=== PATIENT | male | born 1960 | race African-American/Black ===

== ENCOUNTER 2022-09-15 08:36 | Inpatient (IN) | payer OTHER ==
[~2022-09-15] VITALS: Ht 180.3 cm; Wt 98.9 kg
[2022-09-15] MEDS ORDERED: SODIUM CHLORIDE 0.9% 1,000 ML IV ONE (09:30)
[2022-09-15] MEDS ORDERED: MORPHINE SULFATE 2 MG/ML CPJ (NOT FOR IM USE) IV ONE (09:30)
[2022-09-15 09:59] LABS: CHLORIDE 100 mEq/L (98-107)
[2022-09-15 10:03] LABS: INR 1.2; PARTIAL THROMBOPLASTIN TIME 31.3 sec (23.4-31.0); PROTHROMBIN TIME 12.6 sec (9.6-11.0)
[2022-09-15 10:13] LABS: HEMATOCRIT. 34.3 % (42.0-52.0); HEMOGLOBIN. 11.4 g/dL (14.0-18.0); MEAN CORPUSCULAR HEMOGLOBIN 29.4 pg (28.0-32.0); MEAN CORPUSCULAR VOLUME 88.1 fL (80.0-94.0); MEAN PLATELET VOLUME 8.3 fl (7.4-10.4); PLATELET 323 x1000/uL (130-400)
[2022-09-15] MEDS ORDERED: ASPIRIN 81MG TABLET PO ONE (10:45)
[2022-09-15] MEDS ORDERED: PIPERACILLIN/TAZ 3.375G PREMIX 50 ML IV ONE (10:45)
[2022-09-15] MEDS ORDERED: SODIUM CHLORIDE 0.9% 1000ML BAG (SEPSIS BOLUS) IV ONE (10:45)
[2022-09-15] MEDS ORDERED: OSELTAMIVIR 75MG CAPSULE PO ONE (10:45)
[2022-09-15] MEDS ORDERED: VANCOMYCIN 1G PREMIX 200 ML IV ONE (10:45)
[2022-09-15 10:57] LABS: PLATELET ESTIMATE NORMAL
[2022-09-15] MEDS ORDERED: PIPERACILLIN/TAZ 3.375G PREMIX 50 ML IV NR (13:00)
[2022-09-15] MEDS ORDERED: ASPIRIN 81MG TABLET PO NR (13:00)
[2022-09-15] MEDS ORDERED: OSELTAMIVIR 75MG CAPSULE PO NR (13:00)
[2022-09-15] MEDS ORDERED: MORPHINE SULFATE 2 MG/ML CPJ (NOT FOR IM USE) IV NR (13:00)
[2022-09-15] MEDS ORDERED: IPRATROPIUM/ALBUTEROL 0.5-3(2.5)MG/3ML NEB HHN PRN (14:00)
[2022-09-15] MEDS ORDERED: DIPHENHYDRAMINE 50MG/ML VIAL IV PRN (14:00)
[2022-09-15] MEDS ORDERED: ONDANSETRON HCL 4MG/2ML INJ IV PRN (14:00)
[2022-09-15] MEDS ORDERED: CLONIDINE 0.1MG TABLET PO PRN (14:00)
[2022-09-15] MEDS ORDERED: CEFTRIAXONE 1 G PREMIX 50 ML IV SCH (14:00)
[2022-09-15 14:30] LABS: CLARITY URINE CLEAR (CLEAR); COLOR URINE YELLOW (YELLOW); KETONES URINE NEGATIVE (NEGATIVE); LEUKOCYTE ESTERASE URINE NEGATIVE (NEGATIVE); NITRITE URINE NEGATIVE (NEGATIVE); OCCULT BLOOD URINE NEGATIVE (NEGATIVE); PROTEIN URINE NEGATIVE (NEGATIVE); SPECIFIC GRAVITY URINE 1.011 (1.005-1.030); UROBILINOGEN URINE 0.2 E.U./dL (0.2-1.0)
[2022-09-15] MEDS ORDERED: ENOXAPARIN 80MG/0.8ML SYR SUBCUT SCH (15:00)
[2022-09-15] MEDS ORDERED: ENOXAPARIN 30MG/0.3ML SYR SUBCUT SCH (15:30)
[2022-09-15] MEDS ORDERED: CEFTRIAXONE 1,000 MG in DEXTROSE 5% WATER 50 ML IV SCH (16:00)
[2022-09-15] MEDS: CEFTRIAXONE 1 G PREMIX 50 ML IV SCH (17:00)
[2022-09-15] MEDS: NOREPINEPHRINE 8 MG in DEXT 5% WATER 242 ML IV PRN (19:42)
[2022-09-16 05:14] LABS: EOSINOPHILS % 1.2 % (0.0-5.0); HEMATOCRIT. 31.2 % (42.0-52.0); HEMOGLOBIN. 10.6 g/dL (14.0-18.0); LYMPHOCYTES % 24.6 % (20.0-50.0); MEAN CORPUSCULAR HEMOGLOBIN 29.5 pg (28.0-32.0); MEAN CORPUSCULAR VOLUME 86.7 fL (80.0-94.0); MEAN PLATELET VOLUME 8.4 fl (7.4-10.4); NEUTROPHILS % 63.2 % (40.0-76.0); PLATELET 301 x1000/uL (130-400); RED CELL DISTRIBUTION WIDTH 14.1 % (11.6-14.6)
[2022-09-16 05:39] LABS: CHLORIDE 104 mEq/L (98-107)
[2022-09-16] MEDS: ASPIRIN 81MG TABLET PO SCH (08:42)
[2022-09-16] MEDS: ACETAMINOPHEN 325MG TABLET PO PRN (08:42)
[2022-09-16] MEDS ORDERED: MAGNESIUM 2 G PREMIX 50 ML IV NR (09:00)
[2022-09-16] MEDS: NOREPINEPHRINE 8 MG in DEXT 5% WATER 242 ML IV PRN (11:25)
[2022-09-16 15:02] LABS: T4 FREE 1.65 ng/dL (0.76-1.46)
[2022-09-16] MEDS: CEFTRIAXONE 1 G PREMIX 50 ML IV SCH (15:15)
[2022-09-16] MEDS: MIDODRINE HCL 5MG TABLET PO SCH ×2 (15:58→21:00)
[2022-09-17 05:35] LABS: BASOPHILS % 0.8 % (0.0-2.0); EOSINOPHILS % 2.4 % (0.0-5.0); HEMATOCRIT. 34.8 % (42.0-52.0); HEMOGLOBIN. 11.4 g/dL (14.0-18.0); LYMPHOCYTES % 21.5 % (20.0-50.0); MEAN CORPUSCULAR HEMOGLOBIN 29.3 pg (28.0-32.0); MEAN CORPUSCULAR VOLUME 89.2 fL (80.0-94.0); MEAN PLATELET VOLUME 8.2 fl (7.4-10.4); NEUTROPHILS % 65.3 % (40.0-76.0); PLATELET 243 x1000/uL (130-400); RED CELL DISTRIBUTION WIDTH 14.6 % (11.6-14.6)
[2022-09-17 05:38] LABS: PHOSPHORUS 3.1 mg/dL (2.5-4.9)
[2022-09-17] MEDS ORDERED: MAGNESIUM 2 G PREMIX 50 ML IV NR (10:00)
[2022-09-17] MEDS: ASPIRIN 81MG TABLET PO SCH (12:33)
[2022-09-17] MEDS: MIDODRINE HCL 5MG TABLET PO SCH ×3 (12:33→17:00)
[2022-09-17] MEDS: SODIUM CHLORIDE 0.9% 1,000 ML IV SCH (12:42)
[2022-09-17 13:10] LABS: CHLORIDE 104 mEq/L (98-107)
[2022-09-17] MEDS ORDERED: DEXTROSE 50% WATER 50ML SYRINGE IV PRN (13:15)
[2022-09-17] MEDS ORDERED: ENOXAPARIN 40MG/0.4ML SYR SUBCUT SCH (15:30)
[2022-09-17] MEDS: INSULIN LISPRO 100 UNITS/ML SUBCUT SCH (17:24)
[2022-09-17] MEDS: BLOOD SUGAR DIAGNOSTIC STRIP TEST SCH (17:24)
[2022-09-17] MEDS ORDERED: IPRATROPIUM BROMIDE (0.02%) 0.5MG/2.5ML NEB HHN PRN (21:15)
[2022-09-17] MEDS ORDERED: ALBUTEROL (0.083%) 2.5MG/3ML NEB HHN PRN (21:15)
[2022-09-18] VITALS (11 sets, daily range): BP systolic 98–142; BP diastolic 34–88
[2022-09-18] MEDS: BLOOD SUGAR DIAGNOSTIC STRIP TEST SCH ×5 (01:01→21:09)
[2022-09-18] MEDS: INSULIN LISPRO 100 UNITS/ML SUBCUT SCH ×5 (01:05→21:08)
[2022-09-18] MEDS: SODIUM CHLORIDE 0.9% 1,000 ML IV SCH ×2 (01:27→14:40)
[2022-09-18 07:31] LABS: BASOPHILS % 0.9 % (0.0-2.0); EOSINOPHILS % 3.7 % (0.0-5.0); HEMATOCRIT. 32.2 % (42.0-52.0); HEMOGLOBIN. 10.8 g/dL (14.0-18.0); LYMPHOCYTES % 20.7 % (20.0-50.0); MEAN CORPUSCULAR HEMOGLOBIN 29.9 pg (28.0-32.0); MEAN PLATELET VOLUME 8.5 fl (7.4-10.4); MONOCYTES % 8.2 % (2.0-8.0); NEUTROPHILS % 66.5 % (40.0-76.0); PLATELET 215 x1000/uL (130-400); RED BLOOD CELL COUNT 3.62 mill/uL (4.7-6.1); RED CELL DISTRIBUTION WIDTH 14.6 % (11.6-14.6)
[2022-09-18 07:44] LABS: CHLORIDE 107 mEq/L (98-107)
[2022-09-18] MEDS: ASPIRIN 81MG TABLET PO SCH (09:23)
[2022-09-18] MEDS: MIDODRINE HCL 2.5MG TABLET PO SCH ×2 (09:26→17:00)
[2022-09-18] MEDS: MAGNESIUM OXIDE 400MG TABLET PO SCH (09:27)
[2022-09-19] VITALS (12 sets, daily range): BP systolic 114–139; BP diastolic 59–77
[2022-09-19] MEDS: MIDODRINE HCL 2.5MG TABLET PO SCH ×3 (02:38→18:39)
[2022-09-19] MEDS: ACETAMINOPHEN 325MG TABLET PO PRN (02:39)
[2022-09-19] MEDS: SODIUM CHLORIDE 0.9% 1,000 ML IV SCH (03:36)
[2022-09-19 07:07] LABS: BASOPHILS % 0.6 % (0.0-2.0); EOSINOPHILS % 4.2 % (0.0-5.0); HEMATOCRIT. 30.8 % (42.0-52.0); HEMOGLOBIN. 10.3 g/dL (14.0-18.0); LYMPHOCYTES % 28.6 % (20.0-50.0); MEAN CORPUSCULAR HEMOGLOBIN 29.7 pg (28.0-32.0); MEAN CORPUSCULAR VOLUME 88.6 fL (80.0-94.0); MEAN PLATELET VOLUME 8.5 fl (7.4-10.4); NEUTROPHILS % 56.6 % (40.0-76.0); PLATELET 213 x1000/uL (130-400); RED BLOOD CELL COUNT 3.48 mill/uL (4.7-6.1); RED CELL DISTRIBUTION WIDTH 14.4 % (11.6-14.6)
[2022-09-19] MEDS: BLOOD SUGAR DIAGNOSTIC STRIP TEST SCH ×4 (07:30→21:42)
[2022-09-19 07:41] LABS: CHLORIDE 111 mEq/L (98-107)
[2022-09-19] MEDS: INSULIN LISPRO 100 UNITS/ML SUBCUT SCH ×4 (08:00→21:38)
[2022-09-19] MEDS ORDERED: SODIUM POLYSTYRENE SULFONATE 15 G/60 ML BOT PO NR (09:00)
[2022-09-19] MEDS: ASPIRIN 81MG TABLET PO SCH (09:51)
[2022-09-19] MEDS: MAGNESIUM OXIDE 400MG TABLET PO SCH (09:51)
[2022-09-19] MEDS ORDERED: MAGNESIUM 2 G PREMIX 50 ML IV NR (13:00)
[2022-09-19] MEDS ORDERED: CEFTRIAXONE 1,000 MG in DEXTROSE 5% WATER 50 ML IV SCH (16:00)
[2022-09-20] VITALS (11 sets, daily range): BP systolic 105–155; BP diastolic 40–74
[2022-09-20] MEDS: MIDODRINE HCL 2.5MG TABLET PO SCH ×2 (01:48→09:39)
[2022-09-20 06:03] LABS: BASOPHILS % 0.7 % (0.0-2.0); EOSINOPHILS % 3.8 % (0.0-5.0); HEMATOCRIT. 30.4 % (42.0-52.0); HEMOGLOBIN. 10.1 g/dL (14.0-18.0); LYMPHOCYTES % 32.6 % (20.0-50.0); MEAN CORPUSCULAR HEMOGLOBIN 29.8 pg (28.0-32.0); MEAN CORPUSCULAR VOLUME 89.1 fL (80.0-94.0); MEAN PLATELET VOLUME 8.8 fl (7.4-10.4); MONOCYTES % 11.1 % (2.0-8.0); NEUTROPHILS % 51.8 % (40.0-76.0); PLATELET 203 x1000/uL (130-400); RED BLOOD CELL COUNT 3.41 mill/uL (4.7-6.1); RED CELL DISTRIBUTION WIDTH 14.8 % (11.6-14.6)
[2022-09-20 06:38] LABS: CHLORIDE 105 mEq/L (98-107)
[2022-09-20] MEDS: BLOOD SUGAR DIAGNOSTIC STRIP TEST SCH ×2 (07:30→12:30)
[2022-09-20] MEDS: INSULIN LISPRO 100 UNITS/ML SUBCUT SCH (08:00)
[2022-09-20] MEDS: ASPIRIN 81MG TABLET PO SCH (09:39)
[2022-09-20] MEDS: MAGNESIUM OXIDE 400MG TABLET PO SCH (09:40)
[2022-09-20] MEDS ORDERED: ASPI-1160 PO (11:50)
[2022-09-20] MEDS ORDERED: MIDO2.5T PO (11:50)
[2022-09-20] MEDS ORDERED: MAGN400C MT (11:50)
== END 2022-09-20 17:00 | disposition home or self-care (01) | DRG 720 ==
LOC: ER 08:36 → MICUSO 12:43 → EDBEDREQTM 12:49 → EDBEDREQ 12:49 → EDBEDREQSVC 09-16 17:48 → ENRESERV 09-17 20:19 → 5EST 09-17 20:58
PROVIDERS: ADMIT Internal Medicine; ATTEND Internal Medicine
PROC: 02HV33Z Insertion of Infusion Device into Superior Vena Cava, Percutaneous Approach (ICD-10-PCS; principal; 2022-09-16)
PROC: B548ZZA Ultrasonography of Superior Vena Cava, Guidance (ICD-10-PCS; 2022-09-16)
DX: A41.9 Sepsis, unspecified organism (principal); E11.649 Type 2 diabetes mellitus with hypoglycemia without coma; I42.9 Cardiomyopathy, unspecified; N17.9 Acute kidney failure, unspecified; E87.1 Hypo-osmolality and hyponatremia; E11.22 Type 2 diabetes mellitus with diabetic chronic kidney disease; D64.9 Anemia, unspecified; E83.42 Hypomagnesemia; I48.91 Unspecified atrial fibrillation; N18.9 Chronic kidney disease, unspecified; E87.6 Hypokalemia; I12.9 Hypertensive chronic kidney disease with stage 1 through stage 4 chronic kidney disease, or unspecified chronic kidney disease; Z20.822 Contact with and (suspected) exposure to COVID-19; Z95.810 Presence of automatic (implantable) cardiac defibrillator
CPT/HCPCS: 36415; 36573; 70486; 71045; 76770; 80048; 80053; 80061; 81003; 82962; 83036; 83605; 83735; 83880; 84100; 84439; 84443; 84481; 84484; 85025; 86850; 86900; 87426; 87804; 93005; 93306; 93970; 99291; C1725; J0696; J1650; J1815; J2543; J3370; J3475; J3490; J7030; J7060